=== PATIENT | female | born 1980 | race African-American/Black ===

== ENCOUNTER 2021-08-19 12:57 | Inpatient (IN) | payer OTHER ==
[2021-08-19] MEDS ORDERED: Haloperidol Lactate 5 MG/ML VIAL ONE (13:49)
[2021-08-19 13:54] LABS: Hemoglobin 12.3 g/dL (12.0-15.5); Mean Corpuscular HGB CONC 35.9 g/dL (32.0-36.0); Mean Corpuscular Hemoglobin 30.6 pg (27.0-33.0); Mean Corpuscular Volume 85.3 fl (81.6-98.3); Mean Platelet Volume 10.7 fl (7.4-10.4); Platelet Count 403 10x3/uL (150-450); RBC Distribution Width 13.2 % (11.5-14.5); Red Blood Cell (RBC) Count 4.02 10x6/uL (3.90-5.03); White Blood Cell (WBC) Count 21.2 10x3/uL (3.5-10.5)
[2021-08-19 13:57] LABS: MDiff Complete? YES
[2021-08-19 14:05] LABS: Bilirubin Neg (Negative); Blood, Urine 50 (Negative); Clarity Cloudy (Clear); Glucose, Urine (Dipstick) >=1000 mg/dL (Negative); Ketone, Urine 5 mg/dL (Negative); Leukocyte 500 (Negative); Nitrite Negative (Negative); Protein, Urine (Dipstick) 500 mg/dl (Neg-Trace); Specific Gravity, Urine 1.015 (1.002-1.036); Urobilinogen Normal mg/dL (Less than 2)
[2021-08-19 14:09] LABS: BHCG - Serum Negative (NEGATIVE); Pregs Control Background? CLEAR/WHITE (CLR/WHITE); Pregs Control Bar Appear? YES (CONTROL BAR)
[2021-08-19 14:14] LABS: ALT (SGPT) 10 U/L (8-55); AST (SGOT) 28 U/L (5-34); Albumin 3.7 g/dL (3.5-5.0); Alkaline Phosphatase 111 U/L (40-110); Anion Gap 20 mmol/L (10-20); BUN (Urea Nitrogen) 40 mg/dL (7.0-18.7); Bilirubin, Total 0.5 mg/dL (0.2-1.2); Calc. Creatinine Clearance 0 mL/min (70-130); Carbon Dioxide 16 mmol/L (22-29); Chloride 101 mmol/L (98-107); Globulin 3.8 g/dL (2.4-3.5); Lipase 8 U/L (8-78); Potassium 4.2 mmol/L (3.5-5.1); Protein, Total 7.5 g/dL (6.0-8.3); Sodium 133 mmol/L (136-145)
[2021-08-19 14:17] LABS: Amphetamine Not Detected (NotDetected); Barbiturates Screen Not Detected (NotDetected); Benzodiazepine Screen Not Detected (NotDetected); Cocaine Metabolite Screen Not Detected (NotDetected); Methadone Not Detected (NotDetected); Methamphetamine Not Detected (NotDetected); Opiate Screen Not Detected (NotDetected); Oxycodone Screen Not Detected (NotDetected); Phencyclidine (PCP) Not Detected (NotDetected); THC/Cannabinoid Screen Not Detected (NotDetected); Tricyclic Screen Detected (NotDetected)
[2021-08-19 14:18] LABS: Acetaminophen Less than 6.0 mcg/mL (10.0-30.0); Alcohol Less than 10 mg/dL (Less than 10); Salicylate Less than 8.0 mg/dL (15.0-30.0)
[2021-08-19 14:21] LABS: Bacteria/HPF 3+ HPF (None Seen); Squamous Epithelial 0-3 HPF (0-3); WBC/HPF Greater Than 50 HPF (0-3)
[2021-08-19 14:23] LABS: Glucose 421 mg/dL (70-105)
[2021-08-19 14:48] LABS: Lymphocytes 6 % (21-51); Monocytes 9 % (0-10); Neutrophil 85 % (42-75); Platelet Morphology Comment Appears Increased
[2021-08-19 15:19] LABS: Thyroid Stimulating Hormone 0.5935 uIU/mL (0.35-4.94)
[2021-08-19] MEDS ORDERED: Cefepime 2 GM VIAL ONE (15:32)
[2021-08-19 15:37] LABS: Actual Bicarbonate (HCO3v) 17 mEq/L (22-28); Base Excess -8.8 mEq/L (-2.0 to +3.0); Calcium, Ionized (venous) 1.09 mmol/L (1.16-1.32); Chloride (VBG) 99 mmol/L (98-106); Hemoglobin (Hb) 12.8 g/dL (11.7-15.5); Potassium (VBG) 3.86 mmol/L (3.70-5.30); Puncture Site Other Site; Sodium 130.6 mmol/L (133-146)
[2021-08-19] MEDS ORDERED: Sodium Chloride 0.9% 1,000 ML IV PRN ×4 (16:30)
[2021-08-19] MEDS ORDERED: Dextrose 5 %-0.45 % NaCl 1,000 ML IV PRN (16:30)
[2021-08-19] MEDS ORDERED: HUMULIN R 100 UNITS in Sodium Chloride 0.9% 100 ML IVPB SCH (16:30)
[2021-08-19] MEDS ORDERED: Electrolyte Replacement Protocol 1 EACH IVPB ONE (16:30)
[2021-08-19] MEDS ORDERED: NS 0.9% w/ 20 MEQ KCL 1,000 ML IV PRN ×2 (16:30)
[2021-08-19] MEDS ORDERED: Ondansetron PF 4 MG/2 ML Vial IVP PRN (16:30)
[2021-08-19] MEDS ORDERED: D5 1/2 NS w/20 mEq KCL 1,000 ML IV PRN (16:30)
[2021-08-19] MEDS ORDERED: Insulin Regular 300 UNITS/3 ML VIAL ONE (16:33)
[2021-08-19] MEDS ORDERED: INSULIN REGULAR IN 0.9 % NACL 100 UNIT/100 ML BAG ONE (16:33)
[2021-08-19 16:35] LABS: Lactic Acid 2.4 mmol/L (0.5-2.2)
[2021-08-19] MEDS ORDERED: Labetalol HCl 100 MG/20 ML VIAL SLOW IVP PRN (16:50)
[2021-08-19 16:52] LABS: Acetaminophen Less than 6.0 mcg/mL (10.0-30.0)
[2021-08-19 17:15] LABS: Anion Gap 18 mmol/L (10-20); BUN (Urea Nitrogen) 40 mg/dL (7.0-18.7); Calc. Creatinine Clearance 0 mL/min (70-130); Calcium 8.1 mg/dL (7.8-10.44); Carbon Dioxide 14 mmol/L (22-29); Chloride 106 mmol/L (98-107); Glucose 469 mg/dL (70-105); Potassium 3.8 mmol/L (3.5-5.1); Sodium 134 mmol/L (136-145)
[2021-08-19] MEDS ORDERED: NS 0.9% w/ 20 MEQ KCL 1,000 ML ONE (18:08)
[2021-08-19 18:19] LABS: SARS-CoV-2 NAA Rapid Test Not Detected (NotDetected)
[2021-08-19 20:00] VITALS: BMI 25.6
[2021-08-19] MEDS ORDERED: Sterile Water 10 ML ONE (20:13)
[2021-08-19] MEDS: D5 0.9% NS w/ 20 mEq KCl 1,000 ML IV SCH (20:15)
[2021-08-19] MEDS: Dexmedetomidine In 0.9 % NaCl 100 ML IVPB SCH (20:36)
[2021-08-19] MEDS ORDERED: levETIRAcetam in NS 1,000 MG in Premix Bag 1 BAG IVPB SCH (21:00)
[2021-08-19] MEDS ORDERED: Ziprasidone 20 MG VIAL IM SCH (21:00)
[2021-08-19 21:23] LABS: Anion Gap 15 mmol/L (10-20); BUN (Urea Nitrogen) 33 mg/dL (7.0-18.7); Calc. Creatinine Clearance 27 mL/min (70-130); Calcium 6.5 mg/dL (7.8-10.44); Carbon Dioxide 11 mmol/L (22-29); Chloride 119 mmol/L (98-107); Glucose 100 mg/dL (70-105); Sodium 142 mmol/L (136-145)
[2021-08-20 01:17] LABS: Anion Gap 12 mmol/L (10-20); BUN (Urea Nitrogen) 37 mg/dL (7.0-18.7); Calc. Creatinine Clearance 23 mL/min (70-130); Calcium 7.8 mg/dL (7.8-10.44); Carbon Dioxide 16 mmol/L (22-29); Chloride 115 mmol/L (98-107); Glucose 147 mg/dL (70-105); Potassium 3.8 mmol/L (3.5-5.1); Sodium 139 mmol/L (136-145)
[2021-08-20] MEDS ORDERED: D5 1/4 NS 1,000 ML IV SCH (01:45)
[2021-08-20] MEDS: Dextrose 5 % And 0.9 % NaCl 1,000 ML IV SCH ×4 (01:55→18:33)
[2021-08-20] MEDS: 1/2 NS w/KCL 20 mEq 1,000 ML IV SCH ×2 (01:55→11:22)
[2021-08-20] MEDS: D5 0.9% NS w/ 20 mEq KCl 1,000 ML IV SCH (01:56)
[2021-08-20 05:30] LABS: #Basophils 0.1 10x3/uL (0.0-0.2); #Monocytes 1.3 10x3/uL (0.0-1.1); #Neutrophils 21.2 10x3/uL (1.5-8.4); %Basophils 0.2 % (0.0-2.0); %Lymphocytes 7.6 % (18.0-47.0); %Monocytes 5.4 % (0.0-10.0); %Neutrophils 86.2 % (40.0-75.0); Hemoglobin 10.8 g/dL (12.0-15.5); Mean Corpuscular HGB CONC 34.7 g/dL (32.0-36.0); Mean Corpuscular Hemoglobin 30.8 pg (27.0-33.0); Mean Corpuscular Volume 88.6 fl (81.6-98.3); Mean Platelet Volume 10.6 fl (7.4-10.4); Platelet Count 244 10x3/uL (150-450); RBC Distribution Width 13.3 % (11.5-14.5); Red Blood Cell (RBC) Count 3.51 10x6/uL (3.90-5.03); White Blood Cell (WBC) Count 24.7 10x3/uL (3.5-10.5)
[2021-08-20 05:42] LABS: ALT (SGPT) 13 U/L (8-55); AST (SGOT) 59 U/L (5-34); Alkaline Phosphatase 85 U/L (40-110); Anion Gap 14 mmol/L (10-20); BUN (Urea Nitrogen) 35 mg/dL (7.0-18.7); Bilirubin, Total 0.3 mg/dL (0.2-1.2); CK (CPK) 1133 U/L (29-168); Calc. Creatinine Clearance 26 mL/min (70-130); Carbon Dioxide 13 mmol/L (22-29); Chloride 118 mmol/L (98-107); Cholesterol 128 mg/dl (< 200 Desired); Globulin 3.1 g/dL (2.4-3.5); Glucose 94 mg/dL (70-105); HDL Cholesterol 42 mg/dL (>60 Neg Risk); LDL Cholesterol, Calculated 74 mg/dL; Magnesium 1.5 mg/dL (1.6-2.6); Phosphorus 2.7 mg/dL (2.3-4.7); Potassium 3.9 mmol/L (3.5-5.1); Protein, Total 6.1 g/dL (6.0-8.3); Sodium 141 mmol/L (136-145); Triglycerides 62 mg/dL (Less than 150)
[2021-08-20] MEDS: Dexmedetomidine In 0.9 % NaCl 100 ML IVPB SCH (05:43)
[2021-08-20] MEDS ORDERED: Magnesium 2 GM/50 ML 2 GM in Premix Bag 1 BAG IVPB SCH (05:45)
[2021-08-20 06:33] LABS: Band 17 % (5-11); Lymphocytes 12 % (21-51); Metamyelocyte 3 % (0-0); Monocytes 3 % (0-10)
[2021-08-20 06:34] LABS: Platelet Morphology Comment Appears Adequate
[2021-08-20 06:35] LABS: RBC Morphology Normal
[2021-08-20 06:51] LABS: MDiff Complete? YES; Neutrophil 65 % (42-75)
[2021-08-20 06:51] LABS: Syphilis Antibody Nonreactive (Nonreactive); Syphilis Antibody Index 0.07 S/CO (<1.00 Non-Reactive)
[2021-08-20] MEDS: Enoxaparin Sodium 30 MG/0.3 ML SYRINGE SC SCH (08:09)
[2021-08-20] MEDS ORDERED: Dextrose 50% Abboject 50 ML SYRINGE SLOW IVP PRN (08:12)
[2021-08-20] MEDS ORDERED: Dextrose 5% in Water 1,000 ML IV PRN (08:12)
[2021-08-20] MEDS ORDERED: Lantus 1000 UNITS/10 ML VIAL SC SCH (09:00)
[2021-08-20] MEDS: levETIRAcetam in NS 1,000 MG in Premix Bag 1 BAG IVPB SCH ×2 (09:00→10:08)
[2021-08-20] MEDS: HumaLOG 300 UNITS/3 ML VIAL SC PRN ×4 (09:04→12:03)
[2021-08-20 11:26] LABS: Hemoglobin A1c 13.7 % (4.0-6.0)
[2021-08-20] MEDS ORDERED: Cefepime 1 GM in Sodium Chloride 0.9% 100 ML IVPB SCH (15:00)
[2021-08-20] MEDS: levETIRAcetam in NS 1,500 MG in Premix Bag 1 BAG IVPB SCH (20:51)
[2021-08-21 04:04] LABS: Albumin 2.5 g/dL (3.5-5.0); Anion Gap 12 mmol/L (10-20); BUN (Urea Nitrogen) 30 mg/dL (7.0-18.7); Bilirubin, Total 0.3 mg/dL (0.2-1.2); Calc. Creatinine Clearance 28 mL/min (70-130); Carbon Dioxide 15 mmol/L (22-29); Chloride 118 mmol/L (98-107); Glucose 130 mg/dL (70-105); Potassium 3.8 mmol/L (3.5-5.1); Protein, Total 5.3 g/dL (6.0-8.3); Sodium 141 mmol/L (136-145)
[2021-08-21 04:05] LABS: ALT (SGPT) 14 U/L (8-55); AST (SGOT) 52 U/L (5-34); Alkaline Phosphatase 67 U/L (40-110); Globulin 2.8 g/dL (2.4-3.5); Magnesium 2.1 mg/dL (1.6-2.6)
[2021-08-21 04:21] LABS: CK (CPK) 491 U/L (29-168); Phosphorus 2.3 mg/dL (2.3-4.7)
[2021-08-21 07:05] LABS: Hemoglobin 9.5 g/dL (12.0-15.5); Mean Corpuscular HGB CONC 35.4 g/dL (32.0-36.0); Mean Corpuscular Hemoglobin 30.6 pg (27.0-33.0); Mean Corpuscular Volume 86.5 fl (81.6-98.3); Mean Platelet Volume 11.9 fl (7.4-10.4); Platelet Count 182 10x3/uL (150-450); RBC Distribution Width 13.7 % (11.5-14.5); White Blood Cell (WBC) Count 22.8 10x3/uL (3.5-10.5)
[2021-08-21 08:34] LABS: MDiff Complete? YES
[2021-08-21 08:36] LABS: Band 1 % (5-11); Lymphocytes 11 % (21-51)
[2021-08-21 08:37] LABS: Monocytes 3 % (0-10); Neutrophil 85 % (42-75); Platelet Morphology Comment Appears Adequate
[2021-08-21] MEDS: Famotidine/PF 20 mg/2ml Vial SLOW IVP SCH (08:37)
[2021-08-21] MEDS: Enoxaparin Sodium 30 MG/0.3 ML SYRINGE SC SCH (08:37)
[2021-08-21] MEDS: levETIRAcetam in NS 1,500 MG in Premix Bag 1 BAG IVPB SCH ×2 (08:38→21:07)
[2021-08-21] MEDS: NPH, Human Insulin Isophane 300 UNIT/3 ML VIAL SC SCH ×2 (08:39→21:08)
[2021-08-21] MEDS ORDERED: FLU VACC QS2021-22(6MOS UP)/PF 60 MCG/0.5 ML SYRINGE IM ONE (09:00)
[2021-08-21] MEDS: HumaLOG 300 UNITS/3 ML VIAL SC PRN (10:41)
[2021-08-21] MEDS: cefTRIAXone\\ROCEPHIN 2 GM in Sodium Chloride 0.9% 100 ML IVPB SCH (12:06)
[2021-08-22 04:12] LABS: #Basophils 0.1 10x3/uL (0.0-0.2); #Eosinphils 0.2 10x3/uL (0.0-0.5); #Neutrophils 15.8 10x3/uL (1.5-8.4); %Basophils 0.3 % (0.0-2.0); %Eosinophils 1.2 % (0.0-6.0); %Lymphocytes 10.7 % (18.0-47.0); %Monocytes 5.2 % (0.0-10.0); %Neutrophils 80.6 % (40.0-75.0); Hemoglobin 9.2 g/dL (12.0-15.5); Mean Corpuscular HGB CONC 35.2 g/dL (32.0-36.0); Mean Corpuscular Volume 87.9 fl (81.6-98.3); Mean Platelet Volume 10.9 fl (7.4-10.4); Platelet Count 244 10x3/uL (150-450); RBC Distribution Width 13.9 % (11.5-14.5); Red Blood Cell (RBC) Count 2.97 10x6/uL (3.90-5.03); White Blood Cell (WBC) Count 19.6 10x3/uL (3.5-10.5)
[2021-08-22 04:27] LABS: Phosphorus 2.4 mg/dL (2.3-4.7)
[2021-08-22 04:31] LABS: ALT (SGPT) 24 U/L (8-55); AST (SGOT) 88 U/L (5-34); Albumin 2.6 g/dL (3.5-5.0); Alkaline Phosphatase 81 U/L (40-110); Anion Gap 10 mmol/L (10-20); BUN (Urea Nitrogen) 20 mg/dL (7.0-18.7); Bilirubin, Total 0.2 mg/dL (0.2-1.2); Calc. Creatinine Clearance 30 mL/min (70-130); Calcium 8.1 mg/dL (7.8-10.44); Carbon Dioxide 17 mmol/L (22-29); Chloride 117 mmol/L (98-107); Globulin 2.9 g/dL (2.4-3.5); Glucose 152 mg/dL (70-105); Magnesium 1.8 mg/dL (1.6-2.6); Potassium 3.5 mmol/L (3.5-5.1); Protein, Total 5.5 g/dL (6.0-8.3); Sodium 140 mmol/L (136-145)
[2021-08-22] MEDS ORDERED: Famotidine/PF 20 mg/2ml Vial ONE (10:19)
[2021-08-22] MEDS ORDERED: Amlodipine 10 MG TAB PO SCH (10:30)
[2021-08-22] MEDS ORDERED: Lisinopril 5 MG TAB PO SCH (10:30)
[2021-08-22] MEDS ORDERED: Furosemide 40 MG TAB PO SCH (10:30)
[2021-08-22] MEDS: Enoxaparin Sodium 30 MG/0.3 ML SYRINGE SC SCH (11:15)
[2021-08-22] MEDS: Famotidine/PF 20 mg/2ml Vial SLOW IVP SCH (11:15)
[2021-08-22] MEDS: levETIRAcetam in NS 1,500 MG in Premix Bag 1 BAG IVPB SCH (11:16)
[2021-08-22] MEDS: NPH, Human Insulin Isophane 300 UNIT/3 ML VIAL SC SCH (11:16)
[2021-08-22] MEDS: cefTRIAXone\\ROCEPHIN 2 GM in Sodium Chloride 0.9% 100 ML IVPB SCH (13:21)
[2021-08-22 16:23] VITALS: BP 163/72; TEMP 98.3
[2021-08-22 22:12] LABS: Mycoplasma pneumoniae IgG AB 673 U/mL (0-99); Mycoplasma pneumoniae IgM AB Less than 770 U/mL (0-769)
[2021-08-23] MEDS ORDERED: Furosemide 40 MG TAB PO SCH (07:30)
[2021-08-23] MEDS ORDERED: Amlodipine 10 MG TAB PO SCH (09:00)
[2021-08-23] MEDS ORDERED: Lisinopril 5 MG TAB PO SCH (09:00)
== END 2021-08-22 17:20 | disposition home or self-care (01) | DRG 871 ==
LOC: CSHERS 12:57 → SUATTDRO 12:57 → CSHIMCU 12:58 → CSHTELE 08-21 21:25
PROVIDERS: ADMIT Family Medicine; ATTEND Family Medicine
PROC: 06HY33Z Insertion of Infusion Device into Lower Vein, Percutaneous Approach (ICD-10-PCS; principal; 2021-08-19)
DX: A41.9 Sepsis, unspecified organism (principal); N18.6 End stage renal disease; E11.10 Type 2 diabetes mellitus with ketoacidosis without coma; G93.41 Metabolic encephalopathy; J69.0 Pneumonitis due to inhalation of food and vomit; N30.01 Acute cystitis with hematuria; N17.9 Acute kidney failure, unspecified; I12.0 Hypertensive chronic kidney disease with stage 5 chronic kidney disease or end stage renal disease; R65.20 Severe sepsis without septic shock; E11.22 Type 2 diabetes mellitus with diabetic chronic kidney disease; D63.1 Anemia in chronic kidney disease; E86.0 Dehydration; D52.9 Folate deficiency anemia, unspecified; Z20.822 Contact with and (suspected) exposure to COVID-19; G40.909 Epilepsy, unspecified, not intractable, without status epilepticus; Z79.4 Long term (current) use of insulin; Z79.899 Other long term (current) drug therapy; Z79.82 Long term (current) use of aspirin; Z90.49 Acquired absence of other specified parts of digestive tract; Z90.710 Acquired absence of both cervix and uterus; Z98.51 Tubal ligation status; Z86.73 Personal history of transient ischemic attack (TIA), and cerebral infarction without residual deficits
CPT/HCPCS: 36415; 36416; 36556; 51702; 70450; 71045; 74176; 80053; 80061; 80143; 80306; 80307; 81003; 81015; 82010; 82550; 82607; 82746; 82805; 83036; 83605; 83690; 83735; 83880; 83930; 84100; 84439; 84443; 84484; 84703; 85025; 86635; 86780; 86850; 86900; 86901; 87040; 87077; 87081; 87086; 87186; 93005; 94760; 96365; 96366; 96367; 96372; J0692; J0696; J1630; J1650; J1815; J1953; J2405; J3370; J3475; J3480; J3486; J3490; J7042; S0028; U0002

== ENCOUNTER 2023-05-08 20:30 | Inpatient (IN) | payer OTHER ==
[~2023-05-08 20:30] MED LIST: Iopamidol 300 61% 100 ML VIAL FS ONE
[2023-05-08 21:56] LABS: #Eosinphils 0.2 10x3/uL (0.0-0.5); #Monocytes 0.5 10x3/uL (0.0-1.1); #Neutrophils 5.6 10x3/uL (1.5-8.4); %Basophils 0.5 % (0.0-2.0); %Eosinophils 2.1 % (0.0-6.0); %Lymphocytes 20.6 % (18.0-47.0); %Monocytes 6.2 % (0.0-10.0); %Neutrophils 70.1 % (40.0-75.0); Hemoglobin 10.9 g/dL (12.0-15.5); Mean Corpuscular HGB CONC 35.2 g/dL (32.0-36.0); Mean Corpuscular Hemoglobin 30.3 pg (27.0-33.0); Mean Corpuscular Volume 86.1 fl (81.6-98.3); Mean Platelet Volume 9.4 fl (7.4-10.4); Platelet Count 493 10x3/uL (150-450); White Blood Cell (WBC) Count 8.1 10x3/uL (3.5-10.5)
[2023-05-08 21:59] LABS: Bilirubin Neg (Negative); Blood, Urine 25 (Negative); Clarity Cloudy (Clear); Glucose, Urine (Dipstick) Normal (Negative); Ketone, Urine Negative (Negative); Leukocyte 500 (Negative); Nitrite Negative (Negative); Protein, Urine (Dipstick) 500 mg/dl (Neg-Trace); Urobilinogen Normal mg/dL (Less than 2)
[2023-05-08 22:10] LABS: ALT (SGPT) Less than 7 U/L (8-55); AST (SGOT) 15 U/L (5-34); Albumin 2.9 g/dL (3.5-5.0); Alkaline Phosphatase 101 U/L (40-110); Anion Gap 18 mmol/L (10-20); BUN (Urea Nitrogen) 23 mg/dL (7.0-18.7); Bilirubin, Total 0.2 mg/dL (0.2-1.2); Calc. Creatinine Clearance 0 mL/min (70-130); Carbon Dioxide 25 mmol/L (22-29); Chloride 99 mmol/L (98-107); Estimated GFR 7; Globulin 3.4 g/dL (2.4-3.5); Glucose 102 mg/dL (70-105); Lipase 8 U/L (8-78); Potassium 3.4 mmol/L (3.5-5.1); Protein, Total 6.3 g/dL (6.0-8.3); Sodium 139 mmol/L (136-145)
[2023-05-08 22:25] LABS: Bacteria/HPF 2+ HPF (None Seen); CAUTI Indications for Culture < 2yrs of age; RBC/HPF 0-3 HPF (0-3); WBC/HPF Greater than 50 HPF (0-3)
[2023-05-08 22:26] LABS: Urine Culture Reflex Yes Yes
[2023-05-08 22:43] LABS: SARS-CoV-2 NAA Rapid Test Not Detected (NotDetected)
[2023-05-09] MEDS ORDERED: Ketorolac Tromethamine 30 MG/ML VIAL ONE (00:12)
[2023-05-09] MEDS ORDERED: cefTRIAXone (ROCEPHIN) 1 GM VIAL ONE (00:12)
[2023-05-09] MEDS ORDERED: Calcium Carbonate 500 MG ChewTAB PO PRN (02:02)
[2023-05-09] MEDS ORDERED: Dextrose 5% in Water 1,000 ML IV PRN (02:02)
[2023-05-09] MEDS ORDERED: Glucagon 1 MG/ML KIT IM PRN (02:02)
[2023-05-09] MEDS ORDERED: Dextrose 50% Abboject 50 ML SYRINGE SLOW IVP PRN (02:02)
[2023-05-09] MEDS ORDERED: Metoprolol Tartrate 25 MG TAB PO SCH (02:15)
[2023-05-09] MEDS ORDERED: Magnesium 2 GM/50 ML(in water) 2 GM in Premix Bag 1 BAG IVPB SCH (02:30)
[2023-05-09] MEDS ORDERED: Magnesium 2 GM/50 ML BAG (IN WATER) ONE (03:17)
[2023-05-09] MEDS ORDERED: Metoprolol Tartrate 25 MG TAB ONE ×2 (03:19→08:06)
[2023-05-09 04:45] LABS: #Monocytes 0.8 10x3/uL (0.0-1.1); #Neutrophils 8.3 10x3/uL (1.5-8.4); %Basophils 0.4 % (0.0-2.0); %Eosinophils 0.3 % (0.0-6.0); %Lymphocytes 12.6 % (18.0-47.0); %Monocytes 7.7 % (0.0-10.0); %Neutrophils 78.5 % (40.0-75.0); Hematocrit 25.1 % (34.9-44.5); Hemoglobin 8.6 g/dL (12.0-15.5); Mean Corpuscular HGB CONC 34.3 g/dL (32.0-36.0); Mean Corpuscular Hemoglobin 30.2 pg (27.0-33.0); Mean Corpuscular Volume 88.1 fl (81.6-98.3); Mean Platelet Volume 9.4 fl (7.4-10.4); Platelet Count 402 10x3/uL (150-450); RBC Distribution Width 12.1 % (11.5-14.5); Red Blood Cell (RBC) Count 2.85 10x6/uL (3.90-5.03); White Blood Cell (WBC) Count 10.6 10x3/uL (3.5-10.5)
[2023-05-09 04:49] LABS: Anion Gap 15 mmol/L (10-20); BUN (Urea Nitrogen) 23 mg/dL (7.0-18.7); Calc. Creatinine Clearance 0 mL/min (70-130); Calcium 7.2 mg/dL (7.8-10.44); Carbon Dioxide 20 mmol/L (22-29); Chloride 106 mmol/L (98-107); Estimated GFR 7; Glucose 73 mg/dL (70-105); Potassium 3.2 mmol/L (3.5-5.1); Sodium 138 mmol/L (136-145)
[2023-05-09] MEDS ORDERED: Aspirin 81 mg Enteric Coated Tablet ONE (08:06)
[2023-05-09] MEDS ORDERED: Heparin 5,000 UNITS/ML VIAL ONE ×2 (08:06→16:03)
[2023-05-09] MEDS ORDERED: metroNIDAZOLE 500 MG/100 ML BAG ONE ×2 (08:07→16:03)
[2023-05-09] MEDS ORDERED: levETIRAcetam 500 MG TAB ONE (08:07)
[2023-05-09] MEDS ORDERED: cefTRIAXone (ROCEPHIN) 2 GM VIAL ONE (08:07)
[2023-05-09] MEDS ORDERED: Famotidine 20 MG TAB ONE (08:09)
[2023-05-09] MEDS: metroNIDAZOLE 500 MG in Premix Bag 1 BAG IVPB SCH ×3 (08:35→22:24)
[2023-05-09] MEDS ORDERED: FOLIC ACID 0.4 MG PO SCH (09:00)
[2023-05-09] MEDS: Heparin 5,000 UNITS/ML VIAL SC SCH ×3 (09:55→22:24)
[2023-05-09] MEDS: Famotidine 20 MG TAB PO SCH (09:55)
[2023-05-09] MEDS: Aspirin 81 mg Enteric Coated Tablet PO SCH (09:55)
[2023-05-09] MEDS: levETIRAcetam 500 MG TAB PO SCH ×2 (09:56→22:24)
[2023-05-09] MEDS: Metoprolol Tartrate 25 MG TAB PO SCH ×2 (09:56→22:23)
[2023-05-09] MEDS: cefTRIAXone\\ROCEPHIN 2 GM in Sodium Chloride 0.9% 100 ML IVPB SCH (09:57)
[2023-05-09] MEDS: Folic Acid/Vit B Comp W-C PO SCH (10:54)
[2023-05-09] MEDS ORDERED: Potassium Chloride 20 MEQ TAB PO SCH (13:15)
[2023-05-09] MEDS ORDERED: Potassium Chloride 20 MEQ TAB ONE (13:48)
[2023-05-09 15:50] LABS: Hep B Surf Ag Non-Reactive S/CO (NonReactive)
[2023-05-09 20:17] VITALS: BMI 19.2
[2023-05-09] MEDS: Atorvastatin Calcium 10 MG TAB PO SCH (22:23)
[2023-05-09] MEDS: HumaLOG 300 UNITS/3 ML VIAL SC PRN (23:26)
[2023-05-09] MEDS: Mirtazapine 15 MG TAB PO SCH (23:30)
[2023-05-09] MEDS ORDERED: Ondansetron PF 4 MG/2 ML Vial IVP SCH (23:30)
[2023-05-10] MEDS: metroNIDAZOLE 500 MG in Premix Bag 1 BAG IVPB SCH ×3 (06:21→21:14)
[2023-05-10] MEDS: Heparin 5,000 UNITS/ML VIAL SC SCH ×2 (08:36→21:13)
[2023-05-10] MEDS: Metoprolol Tartrate 25 MG TAB PO SCH ×2 (08:37→21:12)
[2023-05-10] MEDS: Aspirin 81 mg Enteric Coated Tablet PO SCH (08:37)
[2023-05-10] MEDS: Famotidine 20 MG TAB PO SCH (08:37)
[2023-05-10] MEDS: levETIRAcetam 500 MG TAB PO SCH ×2 (08:37→21:13)
[2023-05-10] MEDS: cefTRIAXone\\ROCEPHIN 2 GM in Sodium Chloride 0.9% 100 ML IVPB SCH (08:37)
[2023-05-10] MEDS: Folic Acid/Vit B Comp W-C PO SCH (08:38)
[2023-05-10] MEDS ORDERED: Heparin 1,000 UNITS/ML (10 ml) 6,000 UNITS in PERITON.DIALYSIS 7-2.5 % DEXTR 6,000 ML FS SCH (10:00)
[2023-05-10] MEDS ORDERED: metroNIDAZOLE 500 MG/100 ML BAG ONE (13:58)
[2023-05-10 14:50] LABS: HBSAB Concentration 267.62 mIU/mL; Hep B Surf AB Reactive (NonReactive)
[2023-05-10] MEDS ORDERED: Activase 2 MG VIAL CATH SCH (19:45)
[2023-05-10] MEDS: Atorvastatin Calcium 10 MG TAB PO SCH (21:12)
[2023-05-10] MEDS: Mirtazapine 15 MG TAB PO SCH (21:13)
[2023-05-10] MEDS: Loperamide HCl 2 MG CAP PO PRN (21:29)
[2023-05-10] MEDS: HumaLOG 300 UNITS/3 ML VIAL SC PRN (21:30)
[2023-05-11] MEDS: Loperamide HCl 2 MG CAP PO PRN ×2 (00:20→23:09)
[2023-05-11 01:08] LABS: Campy jejuni + coli by PCR Negative (Negative); STEC Shiga Toxin 1+2 Negative (Negative); Salmonella spp. by PCR Negative (Negative); Shigella spp + EIEC by PCR Negative (Negative)
[2023-05-11] MEDS: metroNIDAZOLE 500 MG in Premix Bag 1 BAG IVPB SCH ×3 (05:55→23:14)
[2023-05-11] MEDS ORDERED: Activase 2 MG VIAL CATH PRN (06:00)
[2023-05-11 06:38] LABS: #Monocytes 0.5 10x3/uL (0.0-1.1); #Neutrophils 10.9 10x3/uL (1.5-8.4); %Basophils 0.3 % (0.0-2.0); %Eosinophils 0.2 % (0.0-6.0); %Lymphocytes 7.9 % (18.0-47.0); %Monocytes 3.6 % (0.0-10.0); %Neutrophils 87.5 % (40.0-75.0); Hemoglobin 10.3 g/dL (12.0-15.5); Mean Corpuscular HGB CONC 34.3 g/dL (32.0-36.0); Mean Corpuscular Hemoglobin 29.8 pg (27.0-33.0); Mean Corpuscular Volume 86.7 fl (81.6-98.3); Mean Platelet Volume 9.6 fl (7.4-10.4); Platelet Count 497 10x3/uL (150-450); RBC Distribution Width 12.2 % (11.5-14.5); Red Blood Cell (RBC) Count 3.46 10x6/uL (3.90-5.03); White Blood Cell (WBC) Count 12.4 10x3/uL (3.5-10.5)
[2023-05-11 06:51] LABS: Anion Gap 19 mmol/L (10-20); BUN (Urea Nitrogen) 33 mg/dL (7.0-18.7); Calc. Creatinine Clearance 6 mL/min (70-130); Carbon Dioxide 18 mmol/L (22-29); Chloride 103 mmol/L (98-107); Estimated GFR 6; Glucose 209 mg/dL (70-105); Potassium 4.3 mmol/L (3.5-5.1); Sodium 136 mmol/L (136-145)
[2023-05-11] MEDS: Aspirin 81 mg Enteric Coated Tablet PO SCH (08:34)
[2023-05-11] MEDS: Folic Acid/Vit B Comp W-C PO SCH (08:34)
[2023-05-11] MEDS: Famotidine 20 MG TAB PO SCH (08:34)
[2023-05-11] MEDS: cefTRIAXone\\ROCEPHIN 2 GM in Sodium Chloride 0.9% 100 ML IVPB SCH (08:34)
[2023-05-11] MEDS: levETIRAcetam 500 MG TAB PO SCH ×2 (08:34→22:59)
[2023-05-11] MEDS: Metoprolol Tartrate 25 MG TAB PO SCH ×2 (08:34→23:09)
[2023-05-11] MEDS: Heparin 5,000 UNITS/ML VIAL SC SCH ×2 (08:35→22:59)
[2023-05-11] MEDS: HumaLOG 300 UNITS/3 ML VIAL SC PRN (13:01)
[2023-05-11] MEDS: Atorvastatin Calcium 10 MG TAB PO SCH (22:58)
[2023-05-11] MEDS: Mirtazapine 15 MG TAB PO SCH (23:15)
[2023-05-12 05:34] LABS: #Basophils 0.1 10x3/uL (0.0-0.2); #Eosinphils 0.2 10x3/uL (0.0-0.5); #Monocytes 0.6 10x3/uL (0.0-1.1); #Neutrophils 6.4 10x3/uL (1.5-8.4); %Basophils 0.6 % (0.0-2.0); %Eosinophils 1.8 % (0.0-6.0); %Neutrophils 70.2 % (40.0-75.0); Hematocrit 28.2 % (34.9-44.5); Hemoglobin 9.6 g/dL (12.0-15.5); Mean Corpuscular Hemoglobin 29.7 pg (27.0-33.0); Mean Corpuscular Volume 87.3 fl (81.6-98.3); Mean Platelet Volume 9.9 fl (7.4-10.4); Platelet Count 487 10x3/uL (150-450); RBC Distribution Width 12.1 % (11.5-14.5); Red Blood Cell (RBC) Count 3.23 10x6/uL (3.90-5.03); White Blood Cell (WBC) Count 9.1 10x3/uL (3.5-10.5)
[2023-05-12 05:51] LABS: Anion Gap 17 mmol/L (10-20); BUN (Urea Nitrogen) 29 mg/dL (7.0-18.7); Calc. Creatinine Clearance 6 mL/min (70-130); Calcium 7.6 mg/dL (7.8-10.44); Carbon Dioxide 20 mmol/L (22-29); Chloride 105 mmol/L (98-107); Estimated GFR 6; Glucose 319 mg/dL (70-105); Potassium 4.5 mmol/L (3.5-5.1); Sodium 137 mmol/L (136-145)
[2023-05-12] MEDS: HumaLOG 300 UNITS/3 ML VIAL SC PRN (06:32)
[2023-05-12] MEDS: metroNIDAZOLE 500 MG in Premix Bag 1 BAG IVPB SCH ×2 (06:32→14:00)
[2023-05-12] MEDS: Heparin 5,000 UNITS/ML VIAL SC SCH ×2 (09:05→21:50)
[2023-05-12] MEDS: cefTRIAXone\\ROCEPHIN 2 GM in Sodium Chloride 0.9% 100 ML IVPB SCH (09:37)
[2023-05-12] MEDS: levETIRAcetam 500 MG TAB PO SCH ×2 (09:39→21:49)
[2023-05-12] MEDS: Folic Acid/Vit B Comp W-C PO SCH (09:39)
[2023-05-12] MEDS: Aspirin 81 mg Enteric Coated Tablet PO SCH (09:39)
[2023-05-12] MEDS: Famotidine 20 MG TAB PO SCH (09:39)
[2023-05-12] MEDS: Metoprolol Tartrate 25 MG TAB PO SCH ×2 (09:40→21:50)
[2023-05-12] MEDS: Atorvastatin Calcium 10 MG TAB PO SCH (21:49)
[2023-05-12] MEDS: Lantus 1000 UNITS/10 ML VIAL SC SCH (21:54)
[2023-05-12] MEDS: Mirtazapine 15 MG TAB PO SCH (21:56)
[2023-05-13 04:48] LABS: Anion Gap 14 mmol/L (10-20); BUN (Urea Nitrogen) 28 mg/dL (7.0-18.7); Calc. Creatinine Clearance 6 mL/min (70-130); Calcium 7.5 mg/dL (7.8-10.44); Carbon Dioxide 23 mmol/L (22-29); Chloride 108 mmol/L (98-107); Estimated GFR 6; Glucose 160 mg/dL (70-105); Potassium 3.9 mmol/L (3.5-5.1); Sodium 141 mmol/L (136-145)
[2023-05-13] MEDS: Heparin 5,000 UNITS/ML VIAL SC SCH ×2 (09:00→22:20)
[2023-05-13] MEDS: Folic Acid/Vit B Comp W-C PO SCH (09:39)
[2023-05-13] MEDS: Aspirin 81 mg Enteric Coated Tablet PO SCH (09:39)
[2023-05-13] MEDS: levETIRAcetam 500 MG TAB PO SCH ×2 (09:40→22:20)
[2023-05-13] MEDS: Metoprolol Tartrate 25 MG TAB PO SCH ×2 (09:40→22:20)
[2023-05-13] MEDS: Famotidine 20 MG TAB PO SCH (09:40)
[2023-05-13] MEDS ORDERED: Bupivacaine PF 0.5% 30 ML VIAL ONE (10:49)
[2023-05-13] MEDS ORDERED: EPINEPHrine 1 MG/ML AMP ONE (10:49)
[2023-05-13] MEDS: cefTRIAXone\\ROCEPHIN 2 GM in Sodium Chloride 0.9% 100 ML IVPB SCH (12:29)
[2023-05-13] MEDS ORDERED: Lidocaine 1% PF 5 ML VIAL ONE (13:11)
[2023-05-13] MEDS ORDERED: PROPOFOL 20 ML ONE (13:11)
[2023-05-13] MEDS ORDERED: Ondansetron PF 4 MG/2 ML Vial ONE (13:11)
[2023-05-13] MEDS ORDERED: Succinylcholine 200 MG/10 ml SYRINGE FS ONE (13:19)
[2023-05-13] MEDS ORDERED: Heparin 5,000 UNITS/ML VIAL ONE (13:47)
[2023-05-13] MEDS ORDERED: Heparin 10,000 UNITS/ 10 ML VIAL ONE (13:47)
[2023-05-13] MEDS ORDERED: ePHEDrine Sulfate 50 MG/10 ML VIAL ONE (13:49)
[2023-05-13] MEDS: Mirtazapine 15 MG TAB PO SCH (22:20)
[2023-05-13] MEDS: Atorvastatin Calcium 10 MG TAB PO SCH (22:20)
[2023-05-13] MEDS: Lantus 1000 UNITS/10 ML VIAL SC SCH (22:21)
[2023-05-14 00:41] LABS: Hep B Core Total Ab Non-Reactive (NonReactive)
[2023-05-14] MEDS: levETIRAcetam 500 MG TAB PO SCH ×2 (09:13→21:36)
[2023-05-14] MEDS: cefTRIAXone\\ROCEPHIN 2 GM in Sodium Chloride 0.9% 100 ML IVPB SCH (09:13)
[2023-05-14] MEDS: Acetaminophen 325 MG TAB PO PRN ×2 (09:13→22:05)
[2023-05-14] MEDS: Aspirin 81 mg Enteric Coated Tablet PO SCH (09:13)
[2023-05-14] MEDS: Heparin 5,000 UNITS/ML VIAL SC SCH ×2 (09:13→21:37)
[2023-05-14] MEDS: Famotidine 20 MG TAB PO SCH (09:13)
[2023-05-14] MEDS: Metoprolol Tartrate 25 MG TAB PO SCH ×2 (09:13→21:37)
[2023-05-14] MEDS: Folic Acid/Vit B Comp W-C PO SCH (09:13)
[2023-05-14] MEDS: Mirtazapine 15 MG TAB PO SCH (21:37)
[2023-05-14] MEDS: Atorvastatin Calcium 10 MG TAB PO SCH (21:37)
[2023-05-14] MEDS: Lantus 1000 UNITS/10 ML VIAL SC SCH (21:44)
[2023-05-15] MEDS: HumaLOG 300 UNITS/3 ML VIAL SC PRN (06:47)
[2023-05-15] MEDS ORDERED: traMADol HCl 50 MG TAB PO PRN (07:43)
[2023-05-15] MEDS: levETIRAcetam 500 MG TAB PO SCH ×2 (08:39→20:30)
[2023-05-15] MEDS: Folic Acid/Vit B Comp W-C PO SCH (08:40)
[2023-05-15] MEDS: Famotidine 20 MG TAB PO SCH (08:40)
[2023-05-15] MEDS: Aspirin 81 mg Enteric Coated Tablet PO SCH (08:40)
[2023-05-15] MEDS: Heparin 5,000 UNITS/ML VIAL SC SCH (08:40)
[2023-05-15] MEDS: Metoprolol Tartrate 25 MG TAB PO SCH (08:40)
[2023-05-15] MEDS ORDERED: Ciprofloxacin 500 MG TAB PO SCH (09:00)
[2023-05-15] MEDS: Atorvastatin Calcium 10 MG TAB PO SCH (20:30)
[2023-05-15] MEDS: Lantus 1000 UNITS/10 ML VIAL SC SCH (20:30)
[2023-05-16] MEDS: Metoprolol Tartrate 25 MG TAB PO SCH ×3 (01:24→21:49)
[2023-05-16] MEDS: Ciprofloxacin 500 MG TAB PO SCH ×2 (01:25→21:51)
[2023-05-16] MEDS: Heparin 5,000 UNITS/ML VIAL SC SCH ×3 (01:25→21:50)
[2023-05-16] MEDS: Mirtazapine 15 MG TAB PO SCH ×2 (01:25→21:50)
[2023-05-16] MEDS: Acetaminophen 325 MG TAB PO PRN (01:26)
[2023-05-16] MEDS: HumaLOG 300 UNITS/3 ML VIAL SC PRN (05:58)
[2023-05-16] MEDS: Folic Acid/Vit B Comp W-C PO SCH (10:01)
[2023-05-16] MEDS: levETIRAcetam 500 MG TAB PO SCH ×2 (10:02→21:49)
[2023-05-16] MEDS: Aspirin 81 mg Enteric Coated Tablet PO SCH (10:03)
[2023-05-16] MEDS: Famotidine 20 MG TAB PO SCH (10:04)
[2023-05-16] MEDS: Atorvastatin Calcium 10 MG TAB PO SCH (21:49)
[2023-05-16] MEDS: Lantus 1000 UNITS/10 ML VIAL SC SCH (21:49)
[2023-05-17 04:49] LABS: Anion Gap 13 mmol/L (10-20); BUN (Urea Nitrogen) 9 mg/dL (7.0-18.7); Calc. Creatinine Clearance 13 mL/min (70-130); Calcium 7.7 mg/dL (7.8-10.44); Carbon Dioxide 28 mmol/L (22-29); Chloride 105 mmol/L (98-107); Estimated GFR 16; Glucose 294 mg/dL (70-105); Potassium 3.5 mmol/L (3.5-5.1); Sodium 142 mmol/L (136-145)
[2023-05-17] MEDS: HumaLOG 300 UNITS/3 ML VIAL SC PRN (07:54)
[2023-05-17] MEDS: Heparin 5,000 UNITS/ML VIAL SC SCH ×2 (09:05→20:01)
[2023-05-17] MEDS: levETIRAcetam 500 MG TAB PO SCH ×2 (09:06→20:02)
[2023-05-17] MEDS: Famotidine 20 MG TAB PO SCH (09:06)
[2023-05-17] MEDS: Folic Acid/Vit B Comp W-C PO SCH (09:06)
[2023-05-17] MEDS: Metoprolol Tartrate 25 MG TAB PO SCH ×2 (09:06→20:02)
[2023-05-17] MEDS: Aspirin 81 mg Enteric Coated Tablet PO SCH (09:06)
[2023-05-17] MEDS ORDERED: Epoetin (ESRD) 10,000 UNITS/ML VIAL IVP PRN (11:10)
[2023-05-17] MEDS: Mirtazapine 15 MG TAB PO SCH ×2 (20:01→20:08)
[2023-05-17] MEDS: Lantus 1000 UNITS/10 ML VIAL SC SCH (20:01)
[2023-05-17] MEDS: Atorvastatin Calcium 10 MG TAB PO SCH (20:02)
[2023-05-18] MEDS: Ciprofloxacin 500 MG TAB PO SCH ×2 (00:42→23:01)
[2023-05-18] MEDS: HumaLOG 300 UNITS/3 ML VIAL SC PRN (06:16)
[2023-05-18] MEDS: Aspirin 81 mg Enteric Coated Tablet PO SCH (09:38)
[2023-05-18] MEDS: Famotidine 20 MG TAB PO SCH (09:38)
[2023-05-18] MEDS: Folic Acid/Vit B Comp W-C PO SCH (09:40)
[2023-05-18] MEDS: Heparin 5,000 UNITS/ML VIAL SC SCH ×2 (09:41→22:59)
[2023-05-18] MEDS: levETIRAcetam 500 MG TAB PO SCH ×2 (09:41→23:00)
[2023-05-18] MEDS: Metoprolol Tartrate 25 MG TAB PO SCH ×2 (09:41→23:00)
[2023-05-18] MEDS: Lantus 1000 UNITS/10 ML VIAL SC SCH (22:58)
[2023-05-18] MEDS: Atorvastatin Calcium 10 MG TAB PO SCH (23:00)
[2023-05-18] MEDS: Mirtazapine 15 MG TAB PO SCH (23:00)
[2023-05-19 05:05] LABS: Hematocrit 21.9 % (34.9-44.5); Hemoglobin 7.2 g/dL (12.0-15.5); Mean Corpuscular HGB CONC 32.9 g/dL (32.0-36.0); Mean Corpuscular Hemoglobin 29.8 pg (27.0-33.0); Mean Corpuscular Volume 90.5 fl (81.6-98.3); Mean Platelet Volume 9.6 fl (7.4-10.4); Platelet Count 529 10x3/uL (150-450); Red Blood Cell (RBC) Count 2.42 10x6/uL (3.90-5.03); White Blood Cell (WBC) Count 7.9 10x3/uL (3.5-10.5)
[2023-05-19 05:07] LABS: Anion Gap 11 mmol/L (10-20); BUN (Urea Nitrogen) 8 mg/dL (7.0-18.7); Calc. Creatinine Clearance 17 mL/min (70-130); Calcium 7.8 mg/dL (7.8-10.44); Carbon Dioxide 31 mmol/L (22-29); Chloride 101 mmol/L (98-107); Estimated GFR 22; Glucose 230 mg/dL (70-105); Potassium 3.4 mmol/L (3.5-5.1); Sodium 140 mmol/L (136-145)
[2023-05-19] MEDS: Famotidine 20 MG TAB PO SCH (09:16)
[2023-05-19] MEDS: Aspirin 81 mg Enteric Coated Tablet PO SCH (09:16)
[2023-05-19] MEDS: Metoprolol Tartrate 25 MG TAB PO SCH ×2 (09:16→20:54)
[2023-05-19] MEDS: levETIRAcetam 500 MG TAB PO SCH ×2 (09:16→20:55)
[2023-05-19] MEDS: Heparin 5,000 UNITS/ML VIAL SC SCH ×2 (09:16→21:02)
[2023-05-19] MEDS: Folic Acid/Vit B Comp W-C PO SCH (09:16)
[2023-05-19] MEDS ORDERED: Potassium Chloride 20 MEQ TAB PO SCH (16:00)
[2023-05-19 17:46] LABS: Magnesium 1.6 mg/dL (1.6-2.6)
[2023-05-19] MEDS: Atorvastatin Calcium 10 MG TAB PO SCH (20:55)
[2023-05-19] MEDS: Lantus 1000 UNITS/10 ML VIAL SC SCH (20:58)
[2023-05-19] MEDS: Mirtazapine 15 MG TAB PO SCH (21:05)
[2023-05-19] MEDS: Ciprofloxacin 500 MG TAB PO SCH (23:29)
[2023-05-20 04:52] LABS: #Basophils 0.1 10x3/uL (0.0-0.2); #Eosinphils 0.2 10x3/uL (0.0-0.5); #Neutrophils 4.2 10x3/uL (1.5-8.4); %Basophils 0.6 % (0.0-2.0); %Eosinophils 2.7 % (0.0-6.0); %Lymphocytes 32.3 % (18.0-47.0); Hematocrit 23.3 % (34.9-44.5); Hemoglobin 7.6 g/dL (12.0-15.5); Mean Corpuscular HGB CONC 32.6 g/dL (32.0-36.0); Mean Corpuscular Hemoglobin 29.8 pg (27.0-33.0); Mean Corpuscular Volume 91.4 fl (81.6-98.3); Mean Platelet Volume 9.5 fl (7.4-10.4); Platelet Count 561 10x3/uL (150-450); RBC Distribution Width 13.3 % (11.5-14.5); Red Blood Cell (RBC) Count 2.55 10x6/uL (3.90-5.03); White Blood Cell (WBC) Count 8.2 10x3/uL (3.5-10.5)
[2023-05-20 04:59] LABS: Albumin 2.6 g/dL (3.5-5.0); Anion Gap 11 mmol/L (10-20); BUN (Urea Nitrogen) 12 mg/dL (7.0-18.7); BUN/Creatinine Ratio 3.22; Calc. Creatinine Clearance 12 mL/min (70-130); Calcium 8.2 mg/dL (7.8-10.44); Carbon Dioxide 30 mmol/L (22-29); Chloride 105 mmol/L (98-107); Estimated GFR 15; Glucose 83 mg/dL (70-105); Phosphorus 3.5 mg/dL (2.3-4.7); Potassium 3.7 mmol/L (3.5-5.1); Sodium 142 mmol/L (136-145)
[2023-05-20] MEDS: Folic Acid/Vit B Comp W-C PO SCH (09:09)
[2023-05-20] MEDS: Aspirin 81 mg Enteric Coated Tablet PO SCH (09:09)
[2023-05-20] MEDS: levETIRAcetam 500 MG TAB PO SCH ×2 (09:09→20:45)
[2023-05-20] MEDS: Famotidine 20 MG TAB PO SCH (09:09)
[2023-05-20] MEDS: Heparin 5,000 UNITS/ML VIAL SC SCH ×2 (09:10→20:46)
[2023-05-20] MEDS ORDERED: hydrALAZINE 20 MG/ML VIAL SLOW IVP PRN (09:21)
[2023-05-20] MEDS ORDERED: Magnesium 2 GM/50 ML(in water) 2 GM in Premix Bag 1 BAG IVPB SCH ×2 (09:30→17:00)
[2023-05-20] MEDS ORDERED: Heparin 10,000 UNITS/ 10 ML VIAL FS PRN (11:17)
[2023-05-20] MEDS: Metoprolol Tartrate 25 MG TAB PO SCH ×2 (15:54→20:45)
[2023-05-20] MEDS: Atorvastatin Calcium 10 MG TAB PO SCH (20:46)
[2023-05-20] MEDS: Mirtazapine 15 MG TAB PO SCH (20:47)
[2023-05-20] MEDS: Lantus 1000 UNITS/10 ML VIAL SC SCH (20:47)
[2023-05-20] MEDS: Ciprofloxacin 500 MG TAB PO SCH (23:45)
[2023-05-21 03:45] LABS: #Basophils 0.1 10x3/uL (0.0-0.2); #Eosinphils 0.2 10x3/uL (0.0-0.5); #Monocytes 1.2 10x3/uL (0.0-1.1); #Neutrophils 4.8 10x3/uL (1.5-8.4); %Basophils 0.9 % (0.0-2.0); %Eosinophils 2.3 % (0.0-6.0); %Lymphocytes 28.6 % (18.0-47.0); %Monocytes 13.3 % (0.0-10.0); %Neutrophils 54.4 % (40.0-75.0); Hematocrit 23.5 % (34.9-44.5); Hemoglobin 7.7 g/dL (12.0-15.5); Mean Corpuscular HGB CONC 32.8 g/dL (32.0-36.0); Mean Corpuscular Volume 91.4 fl (81.6-98.3); Mean Platelet Volume 9.9 fl (7.4-10.4); Platelet Count 564 10x3/uL (150-450); RBC Distribution Width 13.7 % (11.5-14.5); Red Blood Cell (RBC) Count 2.57 10x6/uL (3.90-5.03); White Blood Cell (WBC) Count 8.9 10x3/uL (3.5-10.5)
[2023-05-21 04:14] LABS: Albumin 2.5 g/dL (3.5-5.0); Anion Gap 12 mmol/L (10-20); BUN (Urea Nitrogen) 7 mg/dL (7.0-18.7); BUN/Creatinine Ratio 2.53; Calc. Creatinine Clearance 17 mL/min (70-130); Calcium 8.2 mg/dL (7.8-10.44); Carbon Dioxide 28 mmol/L (22-29); Chloride 103 mmol/L (98-107); Estimated GFR 21; Glucose 228 mg/dL (70-105); Phosphorus 2.7 mg/dL (2.3-4.7); Potassium 4.8 mmol/L (3.5-5.1); Sodium 138 mmol/L (136-145)
[2023-05-21] MEDS: Heparin 5,000 UNITS/ML VIAL SC SCH (09:03)
[2023-05-21] MEDS: Metoprolol Tartrate 25 MG TAB PO SCH (09:13)
[2023-05-21] MEDS: Acetaminophen 325 MG TAB PO PRN (09:13)
[2023-05-21] MEDS: Famotidine 20 MG TAB PO SCH (09:13)
[2023-05-21] MEDS: levETIRAcetam 500 MG TAB PO SCH (09:13)
[2023-05-21] MEDS: Aspirin 81 mg Enteric Coated Tablet PO SCH (09:13)
[2023-05-21] MEDS: Folic Acid/Vit B Comp W-C PO SCH (10:54)
[2023-05-21 15:49] LABS: Magnesium 2.1 mg/dL (1.6-2.6)
[2023-05-22] MEDS: Metoprolol Tartrate 25 MG TAB PO SCH ×2 (01:23→09:47)
[2023-05-22] MEDS: levETIRAcetam 500 MG TAB PO SCH ×2 (01:23→09:47)
[2023-05-22] MEDS: Atorvastatin Calcium 10 MG TAB PO SCH (01:23)
[2023-05-22] MEDS: Heparin 5,000 UNITS/ML VIAL SC SCH ×2 (01:23→09:55)
[2023-05-22] MEDS: Mirtazapine 15 MG TAB PO SCH (01:41)
[2023-05-22] MEDS: Lantus 1000 UNITS/10 ML VIAL SC SCH (01:41)
[2023-05-22 05:23] LABS: Hematocrit 27.6 % (34.9-44.5); Hemoglobin 8.8 g/dL (12.0-15.5)
[2023-05-22 05:47] LABS: Anion Gap 14 mmol/L (10-20); BUN (Urea Nitrogen) 12 mg/dL (7.0-18.7); BUN/Creatinine Ratio 2.99; Calc. Creatinine Clearance 11 mL/min (70-130); Calcium 9.3 mg/dL (7.8-10.44); Carbon Dioxide 26 mmol/L (22-29); Chloride 104 mmol/L (98-107); Estimated GFR 13; Glucose 190 mg/dL (70-105); Phosphorus 3.6 mg/dL (2.3-4.7); Potassium 4.8 mmol/L (3.5-5.1); Sodium 139 mmol/L (136-145)
[2023-05-22 08:27] VITALS: BP 130/64; TEMP 98.1
[2023-05-22] MEDS: Famotidine 20 MG TAB PO SCH (09:47)
[2023-05-22] MEDS: Aspirin 81 mg Enteric Coated Tablet PO SCH (09:47)
[2023-05-22] MEDS: Folic Acid/Vit B Comp W-C PO SCH (09:54)
== END 2023-05-22 14:00 | disposition home or self-care (01) | DRG 871 ==
LOC: CSHERS 20:30 → CSHERHOLD 05-09 03:13 → CSHTELE 05-09 18:27
PROVIDERS: ADMIT Student in an Organized Health Care Education/Training Program; ATTEND Internal Medicine
PROC: 3E03329 Introduction of Other Anti-infective into Peripheral Vein, Percutaneous Approach (ICD-10-PCS; 2023-05-09)
PROC: 5A09357 Assistance with Respiratory Ventilation, Less than 24 Consecutive Hours, Continuous Positive Airway Pressure (ICD-10-PCS; 2023-05-09)
PROC: 3E1M39Z Irrigation of Peritoneal Cavity using Dialysate, Percutaneous Approach (ICD-10-PCS; 2023-05-09)
PROC: 3E1M39Z Irrigation of Peritoneal Cavity using Dialysate, Percutaneous Approach (ICD-10-PCS; 2023-05-10)
PROC: 3E1M39Z Irrigation of Peritoneal Cavity using Dialysate, Percutaneous Approach (ICD-10-PCS; 2023-05-10)
PROC: 3E1M39Z Irrigation of Peritoneal Cavity using Dialysate, Percutaneous Approach (ICD-10-PCS; 2023-05-11)
PROC: 0WPGX3Z Removal of Infusion Device from Peritoneal Cavity, External Approach (ICD-10-PCS; principal; 2023-05-13)
PROC: 02HV33Z Insertion of Infusion Device into Superior Vena Cava, Percutaneous Approach (ICD-10-PCS; 2023-05-13)
PROC: B5181ZA Fluoroscopy of Superior Vena Cava using Low Osmolar Contrast, Guidance (ICD-10-PCS; 2023-05-13)
PROC: 0JH60XZ Insertion of Tunneled Vascular Access Device into Chest Subcutaneous Tissue and Fascia, Open Approach (ICD-10-PCS; 2023-05-13)
PROC: 3E033XZ Introduction of Vasopressor into Peripheral Vein, Percutaneous Approach (ICD-10-PCS; 2023-05-13)
PROC: 5A1D70Z Performance of Urinary Filtration, Intermittent, Less than 6 Hours Per Day (ICD-10-PCS; 2023-05-13)
PROC: 5A1D70Z Performance of Urinary Filtration, Intermittent, Less than 6 Hours Per Day (ICD-10-PCS; 2023-05-15)
PROC: 5A1D70Z Performance of Urinary Filtration, Intermittent, Less than 6 Hours Per Day (ICD-10-PCS; 2023-05-18)
PROC: 5A1D70Z Performance of Urinary Filtration, Intermittent, Less than 6 Hours Per Day (ICD-10-PCS; 2023-05-20)
PROC: 5A1D70Z Performance of Urinary Filtration, Intermittent, Less than 6 Hours Per Day (ICD-10-PCS; 2023-05-22)
DX: A41.89 Other specified sepsis (principal); K65.9 Peritonitis, unspecified; N18.6 End stage renal disease; I12.0 Hypertensive chronic kidney disease with stage 5 chronic kidney disease or end stage renal disease; I69.352 Hemiplegia and hemiparesis following cerebral infarction affecting left dominant side; N39.0 Urinary tract infection, site not specified; R64 Cachexia; E44.0 Moderate protein-calorie malnutrition; Z68.1 Body mass index [BMI] 19.9 or less, adult; T85.611A Breakdown (mechanical) of intraperitoneal dialysis catheter, initial encounter; R18.8 Other ascites; E11.22 Type 2 diabetes mellitus with diabetic chronic kidney disease; D63.1 Anemia in chronic kidney disease; G40.909 Epilepsy, unspecified, not intractable, without status epilepticus; E87.6 Hypokalemia; R53.81 Other malaise; I45.81 Long QT syndrome; E88.09 Other disorders of plasma-protein metabolism, not elsewhere classified; E83.42 Hypomagnesemia; Z90.49 Acquired absence of other specified parts of digestive tract; Z79.899 Other long term (current) drug therapy; Z90.710 Acquired absence of both cervix and uterus; Z99.2 Dependence on renal dialysis; Z98.890 Other specified postprocedural states; Z98.51 Tubal ligation status; Z20.822 Contact with and (suspected) exposure to COVID-19
CPT/HCPCS: 36415; 36416; 71045; 74018; 74177; 76705; 80048; 80053; 80069; 81001; 83605; 83630; 83690; 83735; 85014; 85018; 85025; 85027; 86704; 86706; 87070; 87077; 87086; 87186; 87205; 87324; 87340; 87449; 87505; 87507; 90935; 90945; 93005; 93010; 96361; 96365; 96375; C1752; G0257; J0171; J0696; J1644; J1815; J1885; J2405; J2704; J3475; J3490; Q4081; Q9967; S0020

== ENCOUNTER 2023-08-01 06:31 | Emergency (ER) | payer OTHER ==
[2023-08-01 08:00] LABS: #Basophils 0.1 10x3/uL (0.0-0.2); #Eosinphils 0.2 10x3/uL (0.0-0.5); #Monocytes 0.6 10x3/uL (0.0-1.1); #Neutrophils 3.7 10x3/uL (1.5-8.4); %Basophils 1.2 % (0.0-2.0); %Eosinophils 2.9 % (0.0-6.0); %Lymphocytes 21.9 % (18.0-47.0); %Monocytes 10.3 % (0.0-10.0); %Neutrophils 63.5 % (40.0-75.0); Hematocrit 43.2 % (34.9-44.5); Hemoglobin 13.9 g/dL (12.0-15.5); Mean Corpuscular HGB CONC 32.2 g/dL (32.0-36.0); Mean Corpuscular Hemoglobin 28.8 pg (27.0-33.0); Mean Corpuscular Volume 89.6 fl (81.6-98.3); Mean Platelet Volume 10.1 fl (7.4-10.4); Platelet Count 269 10x3/uL (150-450); RBC Distribution Width 13.9 % (11.5-14.5); Red Blood Cell (RBC) Count 4.82 10x6/uL (3.90-5.03); White Blood Cell (WBC) Count 5.8 10x3/uL (3.5-10.5)
[2023-08-01 08:20] LABS: ALT (SGPT) 42 U/L (8-55); AST (SGOT) 44 U/L (5-34); Albumin 3.4 g/dL (3.5-5.0); Alkaline Phosphatase 123 U/L (40-110); Anion Gap 17 mmol/L (10-20); BUN (Urea Nitrogen) 51 mg/dL (7.0-18.7); Bilirubin, Total 0.3 mg/dL (0.2-1.2); Calc. Creatinine Clearance 0 mL/min (70-130); Calcium 8.6 mg/dL (7.8-10.44); Carbon Dioxide 19 mmol/L (22-29); Chloride 105 mmol/L (98-107); Estimated GFR 9; Globulin 3.3 g/dL (2.4-3.5); Glucose 330 mg/dL (70-105); Potassium 4.3 mmol/L (3.5-5.1); Protein, Total 6.7 g/dL (6.0-8.3); Sodium 137 mmol/L (136-145)
== END 2023-08-01 08:30 | disposition home or self-care (01) ==
LOC: CSHERS 06:31
DX: M79.605 Pain in left leg (principal); E11.9 Type 2 diabetes mellitus without complications; I10 Essential (primary) hypertension; Z79.4 Long term (current) use of insulin
CPT/HCPCS: 36415; 80053; 85025; 93005